=== PATIENT | male | born 1985 | race African-American/Black ===

== ENCOUNTER 2018-05-09 08:29 | Emergency (ER) | payer MEDICAID, OTHER ==
[~2018-05-09] VITALS: Ht 177.8 cm; Wt 68.2 kg
[~2018-05-09 08:29] MED LIST: NOCURR
[2018-05-09 08:47] VITALS: BP 133/75
== END 2018-05-09 09:02 | disposition left against medical advice (07) ==
LOC: EMS 08:30
DX: L03.011 Cellulitis of right finger (principal); F43.20 Adjustment disorder, unspecified; F17.210 Nicotine dependence, cigarettes, uncomplicated; F12.10 Cannabis abuse, uncomplicated; F14.90 Cocaine use, unspecified, uncomplicated; F15.90 Other stimulant use, unspecified, uncomplicated
CPT/HCPCS: 99281